=== PATIENT | male | born 1970 | race Caucasian/White ===

== ENCOUNTER → 2017-12-26 | Day surgery (SDC) | payer OTHER ==
[2017-12-20 15:54] VITALS: BMI 43.9
[~2017-12-26] MED LIST: LACTATED RINGERS 1,000 ML IV SCH; PROPOFOL 10 MG/ML 20 ML VIAL IV ONE; SODIUM CHLORIDE 0.9% 1,000 ML IV SCH
[2017-12-26 06:59] VITALS: RESP 18; TEMP 98.2
--- NOTE | 2017-12-26 07:49 | P.PCN ---
Preoperative Diagnosis: Procedure Persistent A. fib, electrical cardioversion Indication for procedure Symptomatic atrial fibrillation, persistent Procedure details Single 360 J shock in the AP configuration successfully converted the patient to sinus rhythm Plan Continue anticoagulation Reassess for any improvement in symptoms while in sinus rhythm Follow-up Holter monitor 2-3 weeks Follow-up with Dr. Yuan in about 4 weeks Consideration for A. fib ablation in the future Underlying bradycardia hence antiarrhythmic drugs to be avoided Disposition: same day
[2017-12-26 09:27] VITALS: BP 109/79; PULSE 72
== END | disposition home or self-care (01) ==
LOC: CATHEP 06:19
PROVIDERS: ATTEND Internal Medicine Clinical Cardiac Electrophysiology
DX: I48.1 Persistent atrial fibrillation (principal); R00.1 Bradycardia, unspecified; E78.5 Hyperlipidemia, unspecified; E66.01 Morbid (severe) obesity due to excess calories; Z68.41 Body mass index [BMI] 40.0-44.9, adult; Z79.01 Long term (current) use of anticoagulants; Z79.899 Other long term (current) drug therapy; Z87.891 Personal history of nicotine dependence
CPT/HCPCS: 92960; 84443; J2704

== ENCOUNTER 2018-01-16 21:59 | Emergency (ER) | payer OTHER ==
[2018-01-16 22:10] VITALS: RESP 18
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
--- NOTE | 2018-01-16 23:06 | XR ---
EXAMINATION TYPE: XR pelvis AP view DATE OF EXAM: 01/16/2018 COMPARISON: NONE HISTORY: Pain TECHNIQUE: Single view FINDINGS: The pelvic ring is intact. Proximal femurs and hip joints appear normal. Sacroiliac joints appear normal. IMPRESSION: Normal pelvis exam.
--- NOTE | 2018-01-16 23:07 | XR ---
EXAMINATION TYPE: XR chest 2V DATE OF EXAM: 01/16/2018 COMPARISON: NONE HISTORY: Pain TECHNIQUE: Frontal and lateral views of the chest are obtained. FINDINGS: Heart and mediastinum are normal. Lungs are clear. Diaphragm is normal. Bony thorax appear s intact. There is no sign of pleural effusion or pneumothorax. IMPRESSION: No cardiopulmonary disease.
[2018-01-16] MEDS ORDERED: HYDROcodone/APAP 5-325MG 1 EACH TAB PO STA (23:12)
[2018-01-16 23:31] VITALS: BP 150/85; PULSE 85; TEMP 98.5
== END 2018-01-16 23:32 | disposition home or self-care (01) ==
LOC: EC 21:59
DX: S16.1XXA Strain of muscle, fascia and tendon at neck level, initial encounter (principal); S09.90XA Unspecified injury of head, initial encounter; R60.0 Localized edema; I48.91 Unspecified atrial fibrillation; E78.5 Hyperlipidemia, unspecified; Z79.01 Long term (current) use of anticoagulants; Z79.899 Other long term (current) drug therapy; V43.52XA Car driver injured in collision with other type car in traffic accident, initial encounter; Y92.410 Unspecified street and highway as the place of occurrence of the external cause
CPT/HCPCS: 70450; 71046; 72125; 72170; 99284

== ENCOUNTER → 2018-03-10 | Outpatient (CLI) | payer OTHER ==
[2018-03-10 09:53] LABS: HCT 42.2 % (39.0-53.0); HGB 14.8 gm/dL (13.0-17.5); MCH 32.7 pg (25.0-35.0); MCHC 35.1 g/dL (31.0-37.0); Mean Platelet Volume 7.5; Platelet Count 193 k/uL (150-450); RBC 4.54 m/uL (4.30-5.90); RDW 12.6 % (11.5-15.5); WBC 6.3 k/uL (3.8-10.6)
[2018-03-10 10:29] LABS: Anion Gap 12 mmol/L; Blood Urea Nitrogen 17 mg/dL (9-20); Calcium 9.4 mg/dL (8.4-10.2); Carbon Dioxide 25 mmol/L (22-30); Chloride 104 mmol/L (98-107); Glucose 123 mg/dL (74-99); Potassium 4.3 mmol/L (3.5-5.1); Sodium 141 mmol/L (137-145)
== END | disposition home or self-care (01) ==
LOC: LABWHC1 09:29
PROVIDERS: ATTEND Internal Medicine Clinical Cardiac Electrophysiology
DX: I48.1 Persistent atrial fibrillation (principal)
CPT/HCPCS: 36415; 80048; 85027

== ENCOUNTER 2018-03-13 10:30 | Day surgery (SDC) | payer OTHER ==
[2018-03-11 11:07] VITALS: BMI 42.7
[2018-03-13] MEDS: SODIUM CHLORIDE 0.9% 1,000 ML IV SCH (10:55)
[2018-03-13] MEDS ORDERED: SUCCINYLCHOLINE CHLORIDE VIAL 200 MG/10 ML VIAL IV ONE (12:08)
[2018-03-13] MEDS ORDERED: fentaNYL (PF) 50 MCG/ML 2 ML AMP ONE (12:08)
[2018-03-13] MEDS ORDERED: PROTAMINE SULFATE 10 MG/ML 5 ML VIAL IV ONE (12:08)
[2018-03-13] MEDS ORDERED: LIDOCAINE 1% INJ 10MG/ML (20 ML MDV) ONE (12:08)
[2018-03-13] MEDS ORDERED: MIDAZOLAM 2 MG/2 ML VIAL ONE (12:08)
[2018-03-13] MEDS ORDERED: HEPARIN SODIUM,PORCINE 10,000 UNIT/ML 1 ML VIAL ONE (12:08)
[2018-03-13] MEDS ORDERED: PHENYLEPHRINE-0.9% NACL SYG 1 MG/10 ML SYRINGE ONE (12:08)
[2018-03-13] MEDS ORDERED: PROPOFOL 10 MG/ML 20 ML VIAL IV ONE (12:08)
[2018-03-13] MEDS ORDERED: LIDOCAINE 2% INJ 20 MG/ML SQ ONE (12:58)
[2018-03-13] MEDS ORDERED: LIDOCAINE 2% INJ 20 MG/ML (20 ML MDV) ONE (12:59)
[2018-03-13] MEDS ORDERED: HEPARIN SODIUM,PORCINE/D5W PMX 25,000 UNIT in DEXTROSE/WATER 1 500ML.BAG IV ONE (13:45)
[2018-03-13] MEDS ORDERED: LACTATED RINGERS 1,000 ML IV ONE (15:30)
[2018-03-13] MEDS ORDERED: ACETAMINOPHEN TAB 325 MG TAB PO PRN ×2 (16:09→16:11)
--- NOTE | 2018-03-13 16:09 | P.PCN ---
Preoperative Diagnosis: Diagnosis Persistent symptomatic atrial fibrillation Underlying sick sinus syndrome Procedures performed (PVI - CRYO Ablation) Invasive hemodynamic monitoring while general anesthesia, right femoral arterial line for monitoring and sampling Comprehensive diagnostic EP study CS pacing and recording Total cardioversion for persistent atrial fibrillation Catheter the mapping of the tachycardia (NOT 3D mapping) Intracardiac echocardiography Pulmonary vein isolation with transseptal and comprehensive EPS, 20227 Procedure details Patient was brought to the EP lab in a fasting state. Written informed consent was obtained prior to the procedure. Procedure performed under general anesthesia After initial muscle relaxant use, muscle relaxants were not given thereafter in order to assess phrenic nerve during procedure Patient prepped and draped as per protocol Full cryo-set up with standard preparation of the cryoablation tools done Femoral Venous access obtained on the right and left groins Sheaths placed Diagnostic catheters for the high right atrium, phrenic nerve stimulation and pacing, His bundle, RV and coronary sinus placed Intracardiac echo catheter placed Long sheath placed in the right atrium Left and right transseptal catheterization performed under intracardiac echo guidance Intravenous heparin with aCT above 300 Later, catheter positioning and balloon positioning under intracardiac echo Baseline measurements HV 45, AH 65 Patient atrial fibrillation the start of the study Diagnostic EP study Atrial pacing performed from the high right atrium and the coronary sinus Transseptal catheterization performed RA pressure 19/13/16 LA pressure 25/12/18 Transseptal catheterization performed with standard sheath. The cryoablation sheath was then placed with an over the wire exchange without any acute complications. All 4 pulmonary veins were isolated in the following sequence: Left superior followed by left inferior followed by right superior followed by right inferior The cryo-ablation balloon was placed at the os of each vein 1.5 mL of IV dye was injected to confirm an occluded vein Goal during cryoablation was to achieve -30C in the first 30 seconds. If not the balloon was repositioned to obtain this result After completion of Cryoblation with durations from 180-240 seconds, entrance block was confirmed with the Attain circular catheter in a roving fashion around the antrum of the pulmonary veins Phrenic nerve pacing was performed from the SVC, right innominate vein area and diaphragm voltage was monitored as well as manually Parameter goals for each cryo freeze -30C by 30 seconds -40C by 60 seconds Mediated between minus 40-55 Thaw time greater than 10 seconds Balloon visualized by intracardiac echo to ensure that the proximal one third was within the left atrium/antrum Left superior pulmonary vein 180 seconds followed by 120 seconds cryo lesions Complete isolation Common left PV os, large Left inferior pulmonary vein 2 cryo lesions, 180 seconds followed by 120 seconds Complete isolation Common left PVs Right superior pulmonary vein, during phrenic nerve pacing despite good occlusion of the vein, isolation of the pulmonary vein was a slow process. Large left superior pulmonary vein os, balloon within the antrum on intracardiac echo 180 sec followed by 120s followed by 120s. On the last cryo lesion of 2 minutes complete isolation achieved. Another 120 sec cryo lesion given thereafter Complete isolation achieved Right inferior pulmonary vein, during phrenic nerve pacing 2 cryo lesions, 180 seconds each, complete isolation of the pulmonary vein Esophageal temperature drop to 28.3C with the first cryo lesion, undeflected Esophageal deflection required for the second lesion Electrical cardioversion performed the end of the procedure after all 4 pulmonary veins were completely isolated At the end of the procedure the Achieve catheter was once again used to check for entrance block Phrenic nerve stimulation was performed to confirm diaphragmatic stimulation the end of the procedure Cine fluoroscopy was performed at the very end of the procedure to confirm movement of both diaphragms with inspiration and expiration At the end of the procedure the patient was extubated Heparin was reversed Venous sheaths were removed and hemostasis assured Result Successful pulmonary vein isolation using cryo-ablation Complete entrance block in all 4 veins confirmed No evidence for phrenic nerve injury Anesthesia: GETA Disposition: same day
[2018-03-13] MEDS ORDERED: ACETAMINOPHEN IV (For NPO) 1,000 MG in EMPTY BAG 1 BAG IVPB ONE (16:11)
[2018-03-13] MEDS ORDERED: IOPAMIDOL-370 100ML BTL INJ ONE (16:12)
[2018-03-13] MEDS: LACTATED RINGERS 1,000 ML IV SCH (17:49)
[2018-03-13] MEDS: HYDROcodone/APAP 5-325MG 1 EACH TAB PO PRN ×2 (17:52→21:14)
[2018-03-13] MEDS ORDERED: PRAVASTATIN SODIUM 20 MG TAB PO SCH (21:00)
[2018-03-13] MEDS ORDERED: RIVAROXABAN 20 MG TAB PO SCH (21:00)
[2018-03-14 07:55] LABS: Anion Gap 10 mmol/L; Blood Urea Nitrogen 20 mg/dL (9-20); Calcium 8.9 mg/dL (8.4-10.2); Carbon Dioxide 27 mmol/L (22-30); Chloride 102 mmol/L (98-107); Glucose 96 mg/dL (74-99); Sodium 139 mmol/L (137-145)
[2018-03-14 07:57] VITALS: RESP 18
--- NOTE | 2018-03-14 08:12 | P.DS ---
Providers Attending physician: Tian Peoples Primary care physician: [facility] Course: Patient is doing well. He denies any palpitations or shortness of breath. He has sore throat and pleuritic discomfort in the mid chest. On examination patient is afebrile 98.6F, pulse rate in the 70s and 80s respirations normal blood pressure 120 10/60 1 mmHg Head and neck examination is normal Heart sounds S1 and S2 are normal no murmurs without rub Breath sounds are clear no rhonchi no crackles Abdomen soft nontender Extremities warm no edema Impression Persistent symptomatic atrial fibrillation status post successful pulmonary vein isolation of all 4 pulmonary veins yesterday Esophageal deflection for a right-sided esophagus Morbid obesity Patient awaiting evaluation for obstructive sleep apnea Past history of alcohol use, complete abstinence from alcohol and recommended Suggest Start flecainide 50 g twice daily Start atenolol 12.5 mg once daily in the morning Continue anticoagulation Follow-up next week for a groin check Follow-up today for a Holter monitor in the future Follow-up with Dr. Yuan in about 6 weeks again Patient may go home today by 6 PM if his groins are stable, vitals are stable computed tomography scan is within normal limits Patient Condition at Discharge: Stable Plan - Discharge Summary Discharge Rx Participant: Yes New Discharge Prescriptions: No Action RX: Pravastatin Sodium [Pravachol] 20 mg PO HS RX: Rivaroxaban [Xarelto] 20 mg PO HS Discharge Medication List RX: Pravastatin Sodium [Pravachol] 20 mg PO HS 12/20/17 [History] RX: Rivaroxaban [Xarelto] 20 mg PO HS 12/20/17 [History]
[2018-03-14] MEDS ORDERED: RX INFO: IV CONTRAST WAS GIVEN 1 EACH MISC MISCELLANE PRN (08:16)
[2018-03-14] MEDS: LACTATED RINGERS 1,000 ML IV SCH (08:43)
[2018-03-14] MEDS: SODIUM CHLORIDE 0.9% 1,000 ML IV SCH (08:43)
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
[2018-03-14 16:17] VITALS: BP 123/84; PULSE 72; TEMP 97.6
== END 2018-03-14 17:38 | disposition home or self-care (01) ==
LOC: CATHEP 10:30 → 3OBS 17:24 → CATHEP 03-14 17:38
PROVIDERS: ATTEND Internal Medicine Clinical Cardiac Electrophysiology
DX: I48.1 Persistent atrial fibrillation (principal); Z79.01 Long term (current) use of anticoagulants; E78.5 Hyperlipidemia, unspecified; I49.5 Sick sinus syndrome; Z87.891 Personal history of nicotine dependence; E66.01 Morbid (severe) obesity due to excess calories; Z68.41 Body mass index [BMI] 40.0-44.9, adult; Z79.899 Other long term (current) drug therapy
CPT/HCPCS: 85347; 92960; 93662; 93609; 93656; 80048; 71260; C1769 ×5; C1894 ×3; C1730 ×2; C1759; C1893; C1733; C1766; J2001 ×2; J2250; J0330; J2720; J1644 ×2; J3010; J0131; J2370; J2704; Q9967 ×2

== ENCOUNTER → 2018-03-27 | Outpatient (CLI) | payer OTHER ==
--- NOTE | 2018-03-27 19:50 | CONS ---
CONSULTATION DATE OF SERVICE: 03/27/2018 47-year-old gentleman who has been evaluated in the sleep center for possible obstructive sleep apnea-hypopnea syndrome. HISTORY OF PRESENT ILLNESS/SLEEP WAKE EVALUATION: SLEEP SCHEDULE: Patient usual sleep schedule from 10 p.m. to 6 a.m. on working days and on weekend from around 11:00 p.m. to 8:00 a.m. FALLING ASLEEP: No problems with falling asleep. DURING SLEEP: He occasionally snores according to his . He does not take any naps during the day. [place] Sleepiness Scale is 2. PAST MEDICAL HISTORY: Positive for atrial fibrillation, hyperlipidemia. Possibly a nasal fracture in the past. PAST SURGICAL HISTORY: Cardioversion, cardiac ablation, right knee surgery for meniscus problems. SOCIAL HISTORY: Positive for smoking less than 1 pack a day for 25 years. Quit about 6 years ago. Alcohol consumption occasional. MEDICATIONS: 1. Atorvastatin. 2. Xarelto. 3. Flecainide. 4. Atenolol. REVIEW OF SYSTEMS: History of episodes of cardiac arrhythmia. Snoring. Increasing weight on about 40 pounds for the last 5 years. FAMILY HISTORY: Heart problems, stroke, arthritis, diabetes. PHYSICAL EXAM: A gentleman without distress BP 119/72, HR 64, RR 16, height 5 feet 11 inches, weight 320, BMI 44.6, temperature 97.3, oxygen saturation at room air 98%. Oropharynx moderately low position of soft palate wide pillars. Small oropharyngeal air space. Possible nasal septum deviation. Slight restriction of nasal breathing. ABDOMEN: Obese. Neck Supple, no JVD. Thyroid is not palpable. LUNGS Clear to percussion and to auscultation. Good air exchange. No wheezing or rhonchi. HEART S1, S2 regular. No murmurs, gallops, or rubs. ABDOMEN Soft and nontender. Bowel sounds are present. No organomegaly appreciated. EXTREMITIES No clubbing or cyanosis. STAMP COLLECTOR Awake, alert, and oriented X3. Cranial nerves 2 to 7 intact. There is no fasciculation or atrophy. noted. No focal deficits observed. IMPRESSION: 1. Snoring. Low position of soft palate, wide pillars, small oropharyngeal air space. Some restriction of nasal breathing, wide neck 19 inches, obstructive sleep apnea- hypopnea syndrome. 2. History of nasal fracture many years ago, possibly nasal septum deviation. 3. Obesity, BMI 44.6. 4. History of atrial fibrillation status post cardioversion and cardiac ablation. 5. Hyperlipidemia. 6. Status post right knee surgery for meniscus problems. PLAN: 1. Polysomnography for evaluation of patient's breathing during sleep. 2. CPAP/BiPAP titration if sleep study confirms obstructive sleep apnea-hypopnea syndrome. 3. Preferable position during sleep on the side. 4. No driving if patient feels any sleepiness. 5. I will see patient for follow up visit to explain results of testing and following plan. Thank you very much for referring this patient for consultation. Sincerely, Zeeshan Vivas MD, PhD, FAASM Diplomat of [place] [place] [employer] [facility] [place] MMODL / STUARTN: [id number] /
== END | disposition home or self-care (01) ==
LOC: SLEEP 15:05
PROVIDERS: ATTEND Internal Medicine
DX: G47.33 Obstructive sleep apnea (adult) (pediatric) (principal); E66.9 Obesity, unspecified; E78.5 Hyperlipidemia, unspecified; Z68.41 Body mass index [BMI] 40.0-44.9, adult; Z86.79 Personal history of other diseases of the circulatory system; Z98.890 Other specified postprocedural states; Z79.01 Long term (current) use of anticoagulants; Z79.899 Other long term (current) drug therapy; Z87.891 Personal history of nicotine dependence
CPT/HCPCS: 99211

== ENCOUNTER → 2018-05-12 | Outpatient (CLI) | payer OTHER ==
[2018-05-12 08:30] LABS: ALT 44 U/L (21-72); AST 25 U/L (17-59); Cholesterol 145 mg/dL (<200); Creatine Kinase 141 U/L (55-170); HDL Cholesterol 46 mg/dL (40-60); LDL Cholesterol,Calculated 68 mg/dL (0-99); Triglycerides 153 mg/dL (<150)
== END | disposition home or self-care (01) ==
LOC: LABWHC1 07:22
PROVIDERS: ATTEND Nurse Practitioner Adult Health
DX: E78.2 Mixed hyperlipidemia (principal)
CPT/HCPCS: 36415; 80061; 82550; 84450; 84460

== ENCOUNTER 2018-07-28 17:51 | Emergency (ER) | payer OTHER ==
[2018-07-28 18:12] VITALS: BP 144/86; PULSE 66; RESP 20; TEMP 98.6
--- NOTE | 2018-07-28 18:29 | ED ---
Upper Extremity HPI - General Chief Complaint: Extremity Injury, Upper Stated Complaint: Infection on Elbow Time Seen by Provider: 07/28/18 18:19 Source: patient, RN notes reviewed Mode of arrival: ambulatory Limitations: no limitations - History of Present Illness Initial Comments: This is a 47-year-old male who presents with chief complaint of left elbow infection. Patient states that a week and a half ago he noticed pain and swelling to his left elbow. He states that it is now red and warm. 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 He denies any fevers or chills. Denies fever, chills, chest pain, shortness of breath, abdominal pain, nausea or vomiting, numbness or tingling, headache or vision changes. - Related Data Home Medications Medication Instructions Recorded Confirmed Pravastatin Sodium [Pravachol] 20 mg PO HS 12/20/17 07/28/18 Rivaroxaban [Xarelto] 20 mg PO HS 12/20/17 07/28/18 Previous Rx's Medication Instructions Recorded Atenolol [Tenormin] 12.5 mg PO DAILY #30 tab 03/14/18 Flecainide [Tambocor] 50 mg PO Q12HR #60 tablet 03/14/18 Allergies Allergy/AdvReac Type Severity Reaction Status Date / Time No Known Allergies Allergy Verified 07/28/18 19:08 Review of Systems ROS Statement: Those systems with pertinent positive or pertinent negative responses have been documented in the HPI. ROS Other: All systems not noted in ROS Statement are negative. Past Medical History Past Medical History: Atrial Fibrillation, Hyperlipidemia History of Any Multi-Drug Resistant Organisms: None Reported Past Surgical History: Orthopedic Surgery Additional Past Surgical History / Comment(s): right knee surgery Past Psychological History: No Psychological Hx Reported Smoking Status: Former smoker Past Alcohol Use History: Occasional Past Drug Use History: None Reported General Exam - General Exam Comments Initial Comments: General: Awake and alert, well-developed; in no apparent distress. HEENT: Head atraumatic, normocephalic. Pupils are equal, round and reactive to light. Extraocular movements intact. Oropharynx moist without erythema or exudate. Neck: Supple. Normal ROM. Cardiovascular: Regular rate and rhythm. No murmurs, rubs or gallops. Chest symmetrical. Respiratory: Lungs clear to auscultation bilaterally. No wheezes, rales or rhonchi. Normal respiratory effort with no use of accessory muscles. Musculoskeletal: Normal range of motion of the left elbow. There is localized swelling at the olecranon. Mild warmth. No erythema. Sensation is intact. Pulses are 2+ equal and palpable bilaterally. Skin: [place], warm and dry without rashes or lesions. Neurological: Alert and oriented x3. CN II-XII grossly intact. Speech is fluent and answers are appropriate. No focal neuro deficits. Psychiatric: Normal mood and affect. No overt signs of depression or anxiety noted. Limitations: no limitations Course Vital Signs 07/28/18 18:09 Temperature 98.6 F Pulse Rate 66 Respiratory 20 Rate Blood Pressure 144/86 O2 Sat by Pulse 99 Oximetry Medical Decision Making - Medical Decision Making This is a 47-year-old male who presents to the emergency department with chief complaint of left elbow pain and swelling. There is a localized soft tissue swelling to the left olecranon. X-ray was obtained which reveals evidence for olecranon bursitis. Patient will be started on NSAIDs. He states he will buy them [id number]. Recommended rest, ice and avoiding pressure on the elbows. Patient's vital signs are stable and he is in no acute distress. He will be discharged home at this time. He is in agreement and voices understanding. All questions were answered. - Radiology Data Radiology results: report reviewed X-ray left elbow impression: Subcutaneous edema and posterior soft tissue swelling. No fracture. This could relate to olecranon bursitis. Disposition Clinical Impression: Olecranon bursitis of left elbow Disposition: HOME SELF-CARE Condition: Good Instructions: Elbow Bursitis (ED) Additional Instructions: Please take ibuprofen 600 mg every 6 hours for the next 2-3 days. Please follow up with primary care provider within 1-2 days. Return to emergency department if symptoms should worsen or any concerns arise. Is patient prescribed a controlled substance at d/c from ED?: No Referrals: Poppy Ramirez MD [Primary Care Provider] - 1-2 days Time of Disposition: 19:17
--- NOTE | 2018-07-28 19:07 | XR ---
EXAMINATION TYPE: XR elbow complete LT DATE OF EXAM: 07/28/2018 COMPARISON: NONE HISTORY: Elbow pain infection TECHNIQUE: 3 views FINDINGS: There is posterior soft tissue swelling. There is a large spur on the olecranon process. I see no fracture nor dislocation. Joint spaces are fairly normal. IMPRESSION: Subcutaneous edema and posterior soft tissue swelling. No fracture. This could relate to olecranon bursitis.
== END 2018-07-28 19:22 | disposition home or self-care (01) ==
LOC: EC 17:51
DX: M70.22 Olecranon bursitis, left elbow (principal); I48.91 Unspecified atrial fibrillation; E78.5 Hyperlipidemia, unspecified; Z87.891 Personal history of nicotine dependence; Z79.01 Long term (current) use of anticoagulants; Z79.899 Other long term (current) drug therapy
CPT/HCPCS: 99283

== ENCOUNTER 2019-08-01 16:40 | Emergency (ER) | payer OTHER ==
[2019-08-01 16:54] VITALS: RESP 18; TEMP 97.9
--- NOTE | 2019-08-01 18:52 | US ---
EXAMINATION TYPE: US venous doppler duplex LE LT DATE OF EXAM: 08/01/2019 6:37 PM COMPARISON: NONE CLINICAL HISTORY: r/o blood clot. SIDE PERFORMED: Left TECHNIQUE: The lower extremity deep venous system is examined utilizing real time linear array sonog radha with graded compression, doppler sonography and color-flow sonography. VESSELS IMAGED: External Iliac Vein (EIV) Common Femoral Vein Deep Femoral Vein Greater Saphenous Vein * Femoral Vein Popliteal Vein Small Saphenous Vein * Proximal Calf Veins (* superficial vessels) Morbidly obese patient. Right Leg: Negative for DVT IMPRESSION: 1. Right lower extremity ultrasound negative for deep venous thrombosis.
--- NOTE | 2019-08-01 18:55 | US ---
EXAMINATION TYPE: US extremity nonvasc mass LT DATE OF EXAM: 08/01/2019 COMPARISON: NONE CLINICAL HISTORY: poss gastruc tear. At patients area of swelling there is no free fluid, no evident mass and superficial veins appear pat ent. Soft tissues appear normal. Muscular signal appears normal. No suspicious hematoma or abnormal fluid collections are evident. IMPRESSION: 1. Normal soft tissue ultrasound. No suspicious changes to suggest muscle tear or hematoma
--- NOTE | 2019-08-01 19:22 | ED ---
General Adult HPI - General Chief complaint: Extremity Problem,Nontraumatic Stated complaint: lt leg swelling Time Seen by Provider: 08/01/19 16:55 Source: patient, RN notes reviewed Mode of arrival: ambulatory Limitations: no limitations - History of Present Illness Initial comments: 48-year-old male with a past medical history of hyperlipidemia, atrial fibrillation presents to the emergency department for a chief complaint of left calf pain. States this has been ongoing for 3 days. Does not recall any injuries with states that he was in cramped position for extended period of time at work and started hurting after that. Patient states it is painful to walk, states it feels like a cramp. Denies any shortness of breath or chest pain. Denies any history of blood clots.Patient has no other complaints at this time including shortness of breath, chest pain, abdominal pain, nausea or vomiting, headache, or visual changes. - Related Data Home Medications Medication Instructions Recorded Confirmed Atorvastatin [Lipitor] 40 mg PO HS 07/28/18 07/28/18 Previous Rx's Medication Instructions Recorded Atenolol [Tenormin] 12.5 mg PO DAILY #30 tab 03/14/18 Flecainide [Tambocor] 50 mg PO Q12HR #60 tablet 03/14/18 Allergies Allergy/AdvReac Type Severity Reaction Status Date / Time No Known Allergies Allergy Verified 08/01/19 16:54 Review of Systems ROS Statement: Those systems with pertinent positive or pertinent negative responses have been documented in the HPI. ROS Other: All systems not noted in ROS Statement are negative. Past Medical History Past Medical History: Atrial Fibrillation, Hyperlipidemia History of Any Multi-Drug Resistant Organisms: None Reported Past Surgical History: Ablation, Orthopedic Surgery Additional Past Surgical History / Comment(s): right knee surgery Past Psychological History: No Psychological Hx Reported Smoking Status: Former smoker Past Alcohol Use History: Occasional Past Drug Use History: None Reported General Exam Limitations: no limitations General appearance: alert, in no apparent distress Head exam: Present: atraumatic, normocephalic, normal inspection Eye exam: Present: normal appearance, PERRL, EOMI. Absent: scleral icterus, conjunctival injection, periorbital swelling ENT exam: Present: normal exam, mucous membranes moist Neck exam: Present: normal inspection, full ROM. Absent: tenderness, meningismus, lymphadenopathy Respiratory exam: Present: normal lung sounds bilaterally. Absent: respiratory distress, wheezes, rales, rhonchi, stridor Cardiovascular Exam: Present: regular rate, normal rhythm, normal heart sounds. Absent: systolic murmur, diastolic murmur, rubs, gallop, clicks Extremities exam: Present: full ROM (Full range of motion of the left lower extremity.), tenderness (Tenderness noted to the calf of the left lower extremity over area of edema.), normal capillary refill (Capillary refill less than 2 seconds, dorsal pedis pulse 2+.), calf tenderness (She does have focal area of edema noted to the left calf with mild tenderness noted to the area. Circumferential swelling. No erythema or increased warmth. No evidence of infection.), other (Patient has normal gait with a intact heel raise. ). Absent: pedal edema, joint swelling Course Vital Signs 08/01/19 16:51 Temperature 97.9 F Pulse Rate 61 Respiratory 18 Rate Blood Pressure 133/73 O2 Sat by Pulse 100 Oximetry Medical Decision Making - Medical Decision Making 48-year-old male presents for left calf pain 3 days. HPI as documented. Patient is ambulatory. Physical exam is pertinent for edema of the left calf with tenderness over the area. No erythema or increased warmth. Heel raise is intact. Ultrasound of the left lower extremity is negative for DVT. Impression reads right lower extremity however I did contact XR about this in this report will be fixed. Ultrasound was also done of the left lower external he which showed a normal soft tissue ultrasound. No suspicious changes to suggest muscle tear or hematoma. Given patient is ambulatory without difficulty with a normal heel raise he will be discharged home to follow up with primary care. Recommended he return here for is any worsening symptoms. I discussed this case with attending Dr. Savage who agrees with this assessment and treatment plan. Disposition Clinical Impression: Calf pain Disposition: HOME SELF-CARE Condition: Good Instructions (If sedation given, give patient instructions): Muscle Cramp (ED) Additional Instructions: Please rest the area. Follow-up with primary care orthopedics. Return to the emergency department if you have worsening symptoms. Is patient prescribed a controlled substance at d/c from ED?: No Referrals: Poppy Ramirez MD [Primary Care Provider] - 1-2 days Josh Herrera DO [Doctor of Osteopathic Medicine] - 1-2 days Time of Disposition: 19:21
[2019-08-01 19:30] VITALS: BP 140/89; PULSE 56
== END 2019-08-01 19:29 | disposition home or self-care (01) ==
LOC: EC 16:40
DX: M79.662 Pain in left lower leg (principal); R60.0 Localized edema; E78.5 Hyperlipidemia, unspecified; I48.91 Unspecified atrial fibrillation; Z98.890 Other specified postprocedural states; Z87.891 Personal history of nicotine dependence; Z79.899 Other long term (current) drug therapy
CPT/HCPCS: 99283

== ENCOUNTER → 2019-10-07 | Outpatient (CLI) | payer OTHER ==
[2019-10-07 18:18] LABS: HCT 40.3 % (39.0-53.0); HGB 13.9 gm/dL (13.0-17.5); MCHC 34.5 g/dL (31.0-37.0); MCV 95.7 fL (80.0-100.0); Mean Platelet Volume 6.8; Platelet Count 211 k/uL (150-450); RBC 4.21 m/uL (4.30-5.90); RDW 12.6 % (11.5-15.5); WBC 8.3 k/uL (3.8-10.6)
[2019-10-08 00:40] LABS: Albumin 4.3 g/dL (3.80-4.90); Albumin/Globulin Ratio 1.95 (1.60-3.17); Anion Gap 7.6 mmol/L (4.00-12.00); BUN/Creat Ratio 24.44 Ratio (12.00-20.00); Calcium 9.2 mg/dL (8.7-10.3); Carbon Dioxide 25.4 mmol/L (21.6-31.8); Chol/HDL Ratio 3.97; Globulin 2.2 g/dL (1.6-3.3); Non-African American GFR(CKD) 99.2 (60.0-200.0); Potassium 3.9 mmol/L (3.5-5.5); Total Bilirubin 0.6 mg/dL (0.2-1.2); Total Protein 6.5 g/dL (6.2-8.2)
[2019-10-08 01:27] LABS: Hemoglobin A1C 5.7 % (4.0-6.0)
== END | disposition home or self-care (01) ==
LOC: LABWHC1 17:22
PROVIDERS: ATTEND Internal Medicine Clinical Cardiac Electrophysiology
DX: I48.91 Unspecified atrial fibrillation (principal); I49.5 Sick sinus syndrome; E11.9 Type 2 diabetes mellitus without complications
CPT/HCPCS: 36415; 80053; 80061; 83036; 84443; 85027

== ENCOUNTER → 2020-06-29 | Outpatient (CLI) | payer OTHER ==
[2020-06-29 14:47] LABS: Basophils # (A) 0.1 k/uL (0-0.2); Basophils % (A) 1 %; Eosinophils # (A) 0.2 k/uL (0-0.7); Eosinophils % (A) 2 %; HCT 45.3 % (39.0-53.0); HGB 14.7 gm/dL (13.0-17.5); Lymphocytes % (A) 22 %; MCH 31.5 pg (25.0-35.0); MCHC 32.5 g/dL (31.0-37.0); MCV 96.9 fL (80.0-100.0); Mean Platelet Volume 7.9; Monocytes # (A) 0.5 k/uL (0-1.0); Monocytes % (A) 5 %; Neutrophils # (A) 6.1 k/uL (1.3-7.7); Neutrophils % (A) 67 %; Platelet Count 242 k/uL (150-450); RBC 4.68 m/uL (4.30-5.90); RDW 13.4 % (11.5-15.5); WBC 9.1 k/uL (3.8-10.6)
[2020-06-29 18:30] LABS: African American GFR (CKD) 114.2 (60.0-200.0); Albumin 4.5 g/dL (3.80-4.90); Albumin/Globulin Ratio 1.67 (1.60-3.17); Anion Gap 7.3 mmol/L (4.00-12.00); BUN/Creat Ratio 23.33 Ratio (12.00-20.00); Calcium 9.4 mg/dL (8.7-10.3); Carbon Dioxide 27.7 mmol/L (21.6-31.8); Chol/HDL Ratio 3.7; Globulin 2.7 g/dL (1.6-3.3); LDL Cholesterol,Calculated 91.6 mg/dL (0.0-131.0); Non-African American GFR(CKD) 98.5 (60.0-200.0); Potassium 4.3 mmol/L (3.5-5.5); Total Bilirubin 0.8 mg/dL (0.3-1.2); Total Protein 7.2 g/dL (6.2-8.2); VLDL Calculation 32.4 mg/dL (5.00-40.00)
[2020-06-29 18:40] LABS: Prostate Specific Antigen 0.7 ng/mL (0.0-3.5)
[2020-06-29 22:19] LABS: Hemoglobin A1C 5.8 % (4.0-6.0)
== END | disposition home or self-care (01) ==
LOC: LABWHC1 13:34
PROVIDERS: ATTEND Family Medicine
DX: E78.00 Pure hypercholesterolemia, unspecified (principal); I49.9 Cardiac arrhythmia, unspecified; G47.33 Obstructive sleep apnea (adult) (pediatric)
CPT/HCPCS: 36415; 80053; 80061; 83036; 84153; 84443; 85025

== ENCOUNTER → 2021-11-14 | Outpatient (CLI) | payer OTHER ==
--- NOTE | 2021-11-15 06:44 | MR ---
EXAMINATION TYPE: MR knee LT wo con DATE OF EXAM: 11/14/2021 COMPARISON: None. HISTORY: Left inner knee pain, and painful kneecap for 3 years TECHNIQUE: Multiplanar, multisequence imaging of the left knee is performed without IV contrast. FINDINGS: MEDIAL MENISCUS: Posterior horn is truncated with abnormal signal extending to the articular surface and central body. LATERAL MENISCUS: Anterior and posterior horns are intact without tear. CRUCIATE LIGAMENTS: The anterior and posterior cruciate ligaments are intact and unremarkable. COLLATERAL LIGAMENTS: The medial collateral ligament and lateral collateral ligament complex are inta ct and unremarkable. EXTENSOR MECHANISM: Visualized quadriceps and patellar tendons are intact. EFFUSION: No significant suprapatellar joint effusion. POPLITEAL CYST: No popliteal/stewart cyst. TRICOMPARTMENT SPACES: Moderate narrowing and mild to moderate spurring patellofemoral compartment. M ild to moderate narrowing and spurring medial and lateral tibiofemoral compartments. CARTILAGE: Chondromalacia patella with significant cartilaginous loss along the inferior aspect of pa tellar pole. Some full-thickness defects laterally are present. BONE MARROW SIGNAL: Some heterogeneous increased T2 signal inferior lateral aspect of the posterior p atellar pole at the sites of focal cartilaginous loss. OTHER: No additional significant abnormality is appreciated. IMPRESSION: 1. Fraying Full-thickness tear posterior horn medial meniscus extending into central body. 2. Fairly moderate tricompartment degenerative changes greatest patellofemoral compartment as detaile d above
== END | disposition home or self-care (01) ==
LOC: RADMRIMAIN 16:20
PROVIDERS: ATTEND Orthopaedic Surgery
DX: M23.222 Derangement of posterior horn of medial meniscus due to old tear or injury, left knee (principal); M17.12 Unilateral primary osteoarthritis, left knee

== ENCOUNTER → 2022-09-26 | Outpatient (CLI) | payer OTHER ==
[2022-09-26 16:21] LABS: ALT 35 U/L (10-49); AST 23 U/L (14-35); African American GFR (CKD) 99.1 (60.0-200.0); Albumin 4.2 g/dL (3.8-4.9); Alkaline Phosphatase 106 U/L (41-126); Blood Urea Nitrogen 17.8 mg/dL (9.0-27.0); Calcium 9.5 mg/dL (8.7-10.3); Carbon Dioxide 24.7 mmol/L (20.0-27.5); Chloride 102 mmol/L (96-109); Chol/HDL Ratio 3.58 Ratio; Globulin 2.8 g/dL (1.6-3.3); Glucose 104 mg/dL (70-110); Non-African American GFR(CKD) 85.5 (60.0-200.0); Potassium 4.5 mmol/L (3.5-5.5); Sodium 138 mmol/L (135-145)
== END | disposition home or self-care (01) ==
LOC: LABWHC1 08:32
PROVIDERS: ATTEND Family Medicine
DX: Z00.00 Encounter for general adult medical examination without abnormal findings (principal); E78.00 Pure hypercholesterolemia, unspecified; Z12.5 Encounter for screening for malignant neoplasm of prostate; E55.9 Vitamin D deficiency, unspecified
CPT/HCPCS: 36415; 80053; 80061; 82306; 83036; 84153; 84443

== ENCOUNTER → 2024-01-04 | Outpatient (CLI) | payer OTHER ==
[2024-01-04 13:23] LABS: HCT 43.4 % (39.6-50.0); HGB 14.4 g/dL (13.0-17.0); MCH 32.2 pg (27.0-32.0); MCHC 33.2 g/dL (32.0-37.0); MCV 97.1 FL (80.0-97.0); NRBC Per 100 WBC 0 X 10*3/uL (0.00-0.01); Platelet Count 178 X 10*3/uL (140-440); RBC 4.47 X 10*6/uL (4.40-5.60); RDW 12.6 % (11.5-14.5); WBC 6.54 X 10*3/uL (4.50-10.00)
[2024-01-04 13:52] LABS: Blood Urea Nitrogen 21.7 mg/dL (9.0-27.0); Chol/HDL Ratio 2.92 Ratio; Glucose 121 mg/dL (70-110); LDL Cholesterol,Calculated 66.5 mg/dL (0.0-131.0); VLDL Calculation 18.34 mg/dL (5.00-40.00)
[2024-01-04 13:53] LABS: ALT 31 U/L (10-49); AST 24 U/L (14-35); Albumin 4.4 g/dL (3.8-4.9); Albumin/Globulin Ratio 1.57 Ratio (1.60-3.17); Alkaline Phosphatase 102 U/L (41-126); Calcium 9.3 mg/dL (8.7-10.3); Carbon Dioxide 25.4 mmol/L (21.6-31.8); Chloride 105 mmol/L (96-109); Globulin 2.8 g/dL (1.6-3.3); Potassium 4.7 mmol/L (3.5-5.5); Sodium 140 mmol/L (135-145); Total Bilirubin 0.4 mg/dL (0.3-1.2); Total Protein 7.2 g/dL (6.2-8.2)
[2024-01-04 14:06] LABS: PSA Annual Screen 0.882 ng/mL (0.000-4.000)
== END | disposition home or self-care (01) ==
LOC: LABWHC1 08:05
PROVIDERS: ATTEND Family Medicine
DX: Z00.00 Encounter for general adult medical examination without abnormal findings (principal); Z12.5 Encounter for screening for malignant neoplasm of prostate; I49.9 Cardiac arrhythmia, unspecified; E78.00 Pure hypercholesterolemia, unspecified; E55.9 Vitamin D deficiency, unspecified; R73.01 Impaired fasting glucose
CPT/HCPCS: 80061; 80053; 84443; 85027; 82306; 83036; 36415; G0103